=== PATIENT | female | born 1975 | race Caucasian/White ===

== ENCOUNTER 2017-04-26 18:05 | Emergency (ER) | payer BC ==
[2017-04-26] MEDS ORDERED: Metoprolol Succinate 50 MG Tab.ER PO ONE (18:27)
--- NOTE | 2017-04-26 18:33 | EDM.PDOC ---
ED HPI GENERAL MEDICAL PROBLEM - General Chief Complaint: Cardiovascular Problem Stated Complaint: HIGH BP Time Seen by Provider: 04/26/17 18:20 Source of Information: Reports: Patient History Limitations: Reports: No Limitations - History of Present Illness INITIAL COMMENTS - FREE TEXT/NARRATIVE: Shari comes into [facility] ED with elevated BP over the past 3 mos, initially detected at an Annual PE. She was advised to monitor BPs and follow up with PCP , which she did today. A review noted systolic BPs ranging from 170s-low 200s/ high 90s-low 100s. Her BP 191/105 today. She has also been experiencing some L shoulder discomfort over the past 4 days, characterized as an achiness, worse with overhead movement. She reports no injury hx. She has tried no meds. - Related Data Allergies Allergy/AdvReac Type Severity Reaction Status Date / Time No Known Allergies Allergy Verified 04/26/17 18:12 Home Meds: Home Meds Cholecalciferol (Vitamin D3) [Vitamin D3] 2,000 unit PO DAILY 04/26/17 [History] Fish Oil/[place]-3 Fatty Acids [Fish Oil 1,000 MG] 1 tab DAILY 04/26/17 [History] Melatonin/Pyridoxine HCl (B6) [Melatonin 5 mg Tablet] 1 each PO BEDTIME [History] Metoprolol Succinate 50 mg PO DAILY #14 tab.er.24h 04/26/17 [Rx] Venlafaxine [Effexor] 150 mg PO DAILY 04/26/17 [History] Past Medical History Cardiovascular History: Reports: Hypertension ED ROS GENERAL - Review of Systems Review Of Systems: ROS reveals no pertinent complaints other than HPI. ED EXAM, GENERAL - Physical Exam Exam: See Below Exam Limited By: No Limitations General Appearance: Alert, WD/WN, No Apparent Distress Eye Exam: Bilateral Eye: Normal Inspection, PERRL Ears: Normal External Exam Nose: Normal Inspection Throat/Mouth: Normal Inspection, Normal Oropharynx Head: Normocephalic Neck: Normal Inspection, Supple, Non-Tender Respiratory/Chest: Lungs Clear, Normal Breath Sounds, Chest Non-Tender Cardiovascular: Normal Peripheral Pulses, Regular Rate, Rhythm, No Edema, No JVD , No Murmur GI/Abdominal: No Abnormal Bruit Back Exam: Normal Inspection Extremities: Normal Inspection Neurological: Alert, Oriented, CN II-XII Intact, Normal Cognition, No Motor/ Sensory Deficits Psychiatric: Normal Affect, Normal Mood Skin Exam: Warm, Dry, Intact Lymphatic: No Adenopathy Course - Vital Signs Text/Narrative:: Following assession at the [facility] ED, screening labs and an ekg were performed, results baseline. I administered Metoprolol 50 mg po, and check BP 176/96 RA sitting. She is asx, no further L shoulder discomfort reported. Last Recorded V/S: Last Vital Signs Temp 36.5 C 04/26/17 18:27 Pulse 65 04/26/17 19:37 Resp 16 04/26/17 19:37 BP 176/99 H 04/26/17 19:37 Pulse Ox 99 04/26/17 18:45 - Orders/Labs/Meds Orders: Active Orders 24 hr Category Date Time Status EKG Documentation Completion [RC] ASDIRECTED Care 04/26/17 18:27 Active EKG 12 Lead [EK] Routine Ther 04/26/17 18:26 Ordered Labs: Laboratory Tests 04/26/17 04/26/17 04/26/17 Range/Units 18:35 18:35 18:35 WBC 6.4 (4.5-12.0) X10-3/uL RBC 4.55 (3.23-5.20) x10(6)uL Hgb 11.7 (11.5-15.5) g/dL Hct 35.2 (30.0-51.3) % MCV 77.2 L (80-96) fL MCH 25.8 L (27.7-33.6) pg MCHC 33.4 (32.2-35.4) g/dL RDW 13.2 (11.5-15.5) % Plt Count 265 (125-369) X10(3)uL MPV 8.7 (7.4-10.4) fL Neut % (Auto) 57.9 (46-82) % Lymph % (Auto) 34.4 (13-37) % Crawford % (Auto) 7.2 (4-12) % Eos % (Auto) 0 L (1.0-5.0) % Baso % (Auto) 0 (0-2) % Neut # (Auto) 3.7 (1.6-8.3) # Lymph # (Auto) 2.2 (0.6-5.0) # Crawford # (Auto) 0.5 (0.0-1.3) # Eos # (Auto) 0.0 (0.0-0.8) # Baso # (Auto) 0.0 (0.0-0.2) # Sodium 134 L (135-145) mmol/L Potassium 3.5 (3.5-5.3) mmol/L Chloride 102 (100-110) mmol/L Carbon Dioxide 23 (23-29) mmol/L BUN 14 (5-20) mg/dL Creatinine 1.0 (0.6-1.3) mg/dL Est Cr Clr Drug Dosing 67.91 mL/min Estimated GFR (MDRD) > 60 (>60) BUN/Creatinine Ratio 14.0 (9-20) Glucose 126 H (80-116) mg/dL Calcium 8.5 L (8.6-10.2) mg/dL Troponin I < 0.01 L (0.02-0.06) NG/ML Meds: Medications Discontinued Medications Generic Name Dose Route Start Last Admin Trade Name Freq PRN Reason Stop Dose Admin Metoprolol Succinate 50 mg 04/26/17 18:27 04/26/17 18:59 Toprol Xl PO 04/26/17 18:28 50 mg ONETIME ONE Administration Departure - Departure Time of Disposition: 19:44 Disposition: Home, Self-Care 01 Condition: Good Clinical Impression: Essential hypertension Referrals: Kym Hartman [employer] [Primary Care Provider] - Forms: ED Department Discharge - Problem List & Annotations (1) Essential hypertension SNOMED Code(s): 10016391 Code(s): I10 - ESSENTIAL (PRIMARY) HYPERTENSION Status: Acute Current Visit: Yes Annotation/Comment:: I dispensed Metoprolol 50 mg qd #15, advised BP and pulse bid, and follow up with PCP within the next 2 weeks. - Problem List Review Problem List Initiated/Reviewed/Updated: Yes - My Orders Last 24 Hours: My Active Orders 04/26/17 18:26 EKG 12 Lead [EK] Routine 04/26/17 18:27 EKG Documentation Completion [RC] ASDIRECTED - Assessment/Plan Last 24 Hours: My Active Orders 04/26/17 18:26 EKG 12 Lead [EK] Routine 04/26/17 18:27 EKG Documentation Completion [RC] ASDIRECTED Plan: Follow up with PCP.
== END 2017-04-26 19:52 | disposition home or self-care (01) ==
LOC: FB.ED 18:05
DX: I10 Essential (primary) hypertension (principal); Z79.899 Other long term (current) drug therapy
CPT/HCPCS: 36415; 80048; 84484; 85025; 93005; 99283; A9270